=== PATIENT | male | born 1995 | race Caucasian/White ===

== ENCOUNTER 2021-02-08 13:25 | Emergency (ER) | payer BC ==
--- NOTE | 2021-02-08 14:08 | EDM.PDOC ---
ED HPI GENERAL MEDICAL PROBLEM - General Chief Complaint: Chest Pain Stated Complaint: CHEST PAINS Time Seen by Provider: 02/08/21 13:42 Source of Information: Reports: Patient History Limitations: Reports: No Limitations - History of Present Illness INITIAL COMMENTS - FREE TEXT/NARRATIVE: Patient is a 25-year-old male who presents today for left-sided chest pain. Patient the pain started earlier today and is a achy feeling. Made worse with exertion. Rest makes the pain better. She denies any shortness of breath fever chills or other symptoms. Left Chest Pain Score (Numeric/FACES): 8 - Related Data Allergies Allergy/AdvReac Type Severity Reaction Status Date / Time No Known Allergies Allergy Verified 02/08/21 13:38 Home Meds: Home Meds . [No Known Home Meds] 02/08/21 [History] Past Medical History - Past Health History Medical/Surgical History: Denies Medical/Surgical History Oncologic (Cancer) History: Reports: Other (See Below) Other Oncologic History: testicular - Infectious Disease History Infectious Disease History: Reports: None Social & Family History - Caffeine Use Caffeine Use: Reports: None - Recreational Drug Use Recreational Drug Use: No ED ROS GENERAL - Review of Systems Review Of Systems: See Below Constitutional: Reports: No Symptoms HEENT: Reports: No Symptoms Respiratory: Reports: No Symptoms Cardiovascular: Reports: Chest Pain Endocrine: Reports: No Symptoms GI/Abdominal: Reports: No Symptoms : Reports: No Symptoms Musculoskeletal: Reports: No Symptoms Skin: Reports: No Symptoms Neurological: Reports: No Symptoms Psychiatric: Reports: No Symptoms Hematologic/Lymphatic: Reports: No Symptoms Immunologic: Reports: No Symptoms ED EXAM, GENERAL - Physical Exam Exam: See Below Exam Limited By: No Limitations General Appearance: Alert, WD/WN, No Apparent Distress Eye Exam: Bilateral Eye: EOMI, PERRL Head: Atraumatic, Normocephalic Respiratory/Chest: No Respiratory Distress, Lungs Clear, Normal Breath Sounds Cardiovascular: Normal Peripheral Pulses, Regular Rate, Rhythm GI/Abdominal: Normal Bowel Sounds, Soft, Non-Tender Extremities: Normal Inspection Neurological: Alert, Oriented, CN II-XII Intact, Normal Cognition, Normal Gait #1 Interpretation EKG Date: 02/08/21 Time: 13:26 Rhythm: NSR Rate (Beats/Min): 79 ST-T: Normal Course - Vital Signs Last Recorded V/S: Last Vital Signs Temp 97 F 02/08/21 13:39 Pulse 86 02/08/21 13:39 Resp 16 02/08/21 13:39 BP 155/73 H 02/08/21 13:39 Pulse Ox 100 02/08/21 13:39 - Orders/Labs/Meds Labs: Laboratory Tests 02/08/21 02/08/21 Range/Units 14:13 14:15 WBC 9.87 (4.0-11.0) K/uL RBC 4.91 (4.50-5.90) M/uL Hgb 14.6 (13.0-17.0) g/dL Hct 42.4 (38.0-50.0) % MCV 86.4 (80.0-98.0) fL MCH 29.7 (27.0-32.0) pg MCHC 34.4 (31.0-37.0) g/dL RDW Std Deviation 43.2 (28.0-62.0) fl RDW Coeff of Matthias 14 (11.0-15.0) % Plt Count 211 (150-400) K/uL MPV 9.20 (7.40-12.00) fL Neut % (Auto) 68.3 (48.0-80.0) % Lymph % (Auto) 20.5 (16.0-40.0) % Brewster % (Auto) 6.5 (0.0-15.0) % Eos % (Auto) 4.4 (0.0-7.0) % Baso % (Auto) 0.3 (0.0-1.5) % Neut # (Auto) 6.8 H (1.4-5.7) K/uL Lymph # (Auto) 2.0 (0.6-2.4) K/uL Brewster # (Auto) 0.6 (0.0-0.8) K/uL Eos # (Auto) 0.4 (0.0-0.7) K/uL Baso # (Auto) 0.0 (0.0-0.1) K/uL Nucleated RBC % 0.0 /100WBC Nucleated RBCs # 0 K/uL Sodium 141 (136-148) mmol/L Potassium 4.2 (3.5-5.1) mmol/L Chloride 105 (98-107) mmol/L Carbon Dioxide 27.4 (21.0-32.0) mmol/L BUN 13 (7.0-18.0) mg/dL Creatinine 0.9 (0.8-1.3) mg/dL Est Cr Clr Drug Dosing 123.29 mL/min Estimated GFR (MDRD) > 60.0 ml/min Glucose 94 (74-106) mg/dL Calcium 9.2 (8.5-10.1) mg/dL Total Bilirubin 0.4 (0.2-1.0) mg/dL AST 29 (15-37) IU/L ALT 44 (14-63) IU/L Alkaline Phosphatase 96 (46-116) U/L Creatine Kinase 189 (26-308) U/L Troponin I < 0.050 (0.000-0.056) ng/mL Total Protein 8.0 (6.4-8.2) g/dL Albumin 4.1 (3.4-5.0) g/dL Globulin 3.9 (2.6-4.0) g/dL Albumin/Globulin Ratio 1.1 (0.9-1.6) Lipase 90 (73-393) U/L - Re-Assessments/Exams Free Text/Narrative Re-Assessment/Exam: 02/08/21 14:58 Patient tropes negative x1. Likely unspecified chest pain will have patient follow-up PMD or cardiology as needed. Departure - Departure Time of Disposition: 14:58 Disposition: Home, Self-Care 01 Condition: Good Clinical Impression: Chest pain, unspecified Instructions: Nonspecific Chest Pain, Adult, [id number] Forms: ED Department Discharge Additional Instructions: The following information is given to patients seen in the emergency department who are being discharged to home. This information is to outline your options for follow-up care. We provide all patients seen in our emergency department with a follow-up referral. The need for follow-up, as well as the timing and circumstances, are variable depending upon the specifics of your emergency department visit. If you don't have a primary care physician on staff, we will provide you with a referral. We always advise you to contact your personal physician following an emergency department visit to inform them of the circumstance of the visit and for follow-up with them and/or the need for any referrals to a consulting specialist. The emergency department will also refer you to a specialist when appropriate. This referral assures that you have the opportunity for follow-up care with a specialist. All of these measure are taken in an effort to provide you with optimal care, which includes your follow-up. Under all circumstances we always encourage you to contact your private physician who remains a resource for coordinating your care. When calling for follow-up care, please make the office aware that this follow-up is from your recent emergency room visit. If for any reason you are refused follow-up, please contact the [facility] Emergency Department at and asked to speak to the emergency department charge nurse. Please follow up with your primary care physician. If you do not have a primary care physician, see below: [facility] [address] [place] [address] [id number] [facility] [address] [place] [phone] Seen today for chest pain. We recommend you follow-up with your primary care physician if you continue to have chest pain. If you have any other concerning signs or symptoms please return to the ED. Sepsis Event Note (ED) - Evaluation Sepsis Screening Result: No Definite Risk - Focused Exam Vital Signs: Vital Signs Temp Pulse Resp BP Pulse Ox 02/08/21 13:39 97 F 86 16 155/73 H 100 - Assessment/Plan Plan: Patient is a 25-year-old male presents today for left-sided chest pain. Patient has a heart score of 0 will obtain labs EKG and reassess.
--- NOTE | 2021-02-08 14:42 | CR ---
INDICATION: Chest pain. TECHNIQUE: PA and lateral. COMPARISON: 12/08/2020. FINDINGS: Lungs clear. No pleural effusion or pneumothorax. Heart size and pulmonary vasculature within normal limits. No obvious rib fracture or other significant osseous abnormality. IMPRESSION: Negative chest. Dictated by Bharat Ruelas MD @ 02/08/2021 2:40:[address] Bharat Ruelas @ Feb 08 2021 2:40PM
[2021-02-08 14:49] LABS: BLOOD UREA NITROGEN,BUN 13 mg/dL (7.0-18.0); CARBON DIOXIDE,CO2 27.4 mmol/L (21.0-32.0); CHLORIDE,CL 105 mmol/L (98-107); GLUCOSE RANDOM 94 mg/dL (74-106); LIPASE 90 U/L (73-393); POTASSIUM,K 4.2 mmol/L (3.5-5.1); SODIUM,NA 141 mmol/L (136-148)
== END 2021-02-08 15:09 | disposition home or self-care (01) ==
LOC: MW.ED 13:25
DX: R07.9 Chest pain, unspecified (principal)
CPT/HCPCS: 36415; 71046; 71046-26; 80053; 82550; 83690; 84484; 85025; 93005; 99285-25

== ENCOUNTER 2021-07-19 10:22 | Day surgery (SDC) | payer BC ==
[~2021-07-19 10:22] MED LIST: Albuterol 0.083% 2.5 MG/3 ML Neb Soln NEB PRN; HYDROmorphone 1 MG/ML Syringe IVPUSH PRN; Metoclopramide 10 MG/2 ML SDV IVPUSH PRN; Morphine 4 MG/ML VIAL IVPUSH PRN; Naloxone 0.4 MG/ML SDV IVPUSH PRN; Ondansetron 4 MG/2 ML SDV IVPUSH PRN; fentaNYL 100 MCG/2 ML SDV IVPUSH PRN
[2021-07-19] MEDS ORDERED: fentaNYL 100 MCG/2 ML SDV ONE (10:40)
[2021-07-19] MEDS ORDERED: Midazolam 1 MG/ML 2 ML SDV ONE (10:40)
[2021-07-19] MEDS ORDERED: Dexmedetomidine 200 MCG/2 ML SDV ONE (10:40)
[2021-07-19] MEDS ORDERED: Water For Injection, Sterile 20 ML ONE (10:41)
[2021-07-19] MEDS ORDERED: Propofol 200 MG/20 ML SDV ONE (10:48)
[2021-07-19] MEDS ORDERED: Lactated Ringers 1,000 ML IV SCH (11:15)
[2021-07-19] MEDS ORDERED: Heparin Sodium 100 Units/ML 3 ML Syringe ONE (11:15)
[2021-07-19] MEDS ORDERED: Octyl 2-Cyanoacrylate 1 Tube ONE (11:15)
[2021-07-19] MEDS ORDERED: Bupivacaine 0.5% 10 ML SDV ONE (11:15)
[2021-07-19] MEDS ORDERED: Lidocaine 1% 20 ML MDV ONE (11:15)
[2021-07-19] MEDS ORDERED: Dexamethasone 4 MG/ML 5 ML MDV ONE (11:49)
[2021-07-19] MEDS ORDERED: Ondansetron 4 MG/2 ML SDV ONE (11:49)
[2021-07-19] MEDS ORDERED: Ketorolac 30 MG/ML SDV ONE ×2 (12:39→13:28)
[2021-07-19] MEDS ORDERED: Ketorolac 30 MG/ML SDV IVPUSH PRN (13:26)
[2021-07-19 13:55] LABS: BLOOD UREA NITROGEN,BUN 13 mg/dL (7.0-18.0); CARBON DIOXIDE,CO2 24.6 mmol/L (21.0-32.0); CHLORIDE,CL 105 mmol/L (98-107); GLUCOSE RANDOM 95 mg/dL (74-106); POTASSIUM,K 4.3 mmol/L (3.5-5.1); SODIUM,NA 140 mmol/L (136-148)
== END 2021-07-19 13:55 | disposition home or self-care (01) ==
LOC: MW.SDS 10:22
PROVIDERS: ATTEND Surgery
DX: C62.90 Malignant neoplasm of unspecified testis, unspecified whether descended or undescended (principal); E66.9 Obesity, unspecified; Z98.890 Other specified postprocedural states; Z68.38 Body mass index [BMI] 38.0-38.9, adult; Z87.891 Personal history of nicotine dependence
CPT/HCPCS: 36415; 36561; 71045; 76000; 80053; 85025; A9270; J0131; J0690; J1100; J1642; J1885; J2250; J2405; J2704; J3010; J3490; J7120; C1788

== ENCOUNTER 2022-12-31 06:48 | Day surgery (SDC) | payer BC ==
[~2022-12-31 06:48] MED LIST changes: -Albuterol 0.083% 2.5 MG/3 ML Neb Soln NEB PRN; -HYDROmorphone 1 MG/ML Syringe IVPUSH PRN; +Lactated Ringers 1,000 ML IV SCH; -Metoclopramide 10 MG/2 ML SDV IVPUSH PRN; -Morphine 4 MG/ML VIAL IVPUSH PRN; -Naloxone 0.4 MG/ML SDV IVPUSH PRN; -Ondansetron 4 MG/2 ML SDV IVPUSH PRN; +Sodium Chloride 0.9% 10 ML Syringe FLUSH PRN; +Sodium Chloride 0.9% 2.5 ML Syringe FLUSH PRN; +Sodium Chloride 0.9% 20 ML SDV IV PRN; -fentaNYL 100 MCG/2 ML SDV IVPUSH PRN
[2022-12-31] MEDS ORDERED: propofoL 50 ML ONE (07:23)
[2022-12-31] MEDS ORDERED: Dexmedetomidine 200 MCG/2 ML SDV ONE (07:23)
[2022-12-31] MEDS ORDERED: Bupivacaine 0.5% 30 ML SDV ONE (07:24)
[2022-12-31] MEDS ORDERED: Lidocaine 1% 20 ML MDV ONE (07:24)
== END 2022-12-31 09:12 | disposition home or self-care (01) ==
LOC: MW.SDS 06:48
PROVIDERS: ATTEND Surgery
DX: Z45.2 Encounter for adjustment and management of vascular access device (principal); E66.9 Obesity, unspecified; Z79.899 Other long term (current) drug therapy; Z85.47 Personal history of malignant neoplasm of testis; Z68.39 Body mass index [BMI] 39.0-39.9, adult; Z87.891 Personal history of nicotine dependence; Z90.79 Acquired absence of other genital organ(s)
CPT/HCPCS: 36590; J2704; J3490; J7030; J7120; 00400